=== PATIENT | female | born 1955 | race Caucasian/White ===

== ENCOUNTER 2016-07-05 10:53 | Emergency (ER) | payer BC ==
[~2016-07-05] VITALS: Ht 167.6 cm; Wt 68.2 kg
[2016-07-05 10:55] VITALS: TEMP 97
[2016-07-05] MEDS ORDERED: NORCO 325 MG-51 TAB PO (12:35)
[2016-07-05 12:46] VITALS: BP 112/62; PULSE 89
== END 2016-07-05 12:55 | disposition home or self-care (01) ==
LOC: COL.ER 10:53
DX: S02.2XXA Fracture of nasal bones, initial encounter for closed fracture (principal); S01.21XA Laceration without foreign body of nose, initial encounter; W01.0XXA Fall on same level from slipping, tripping and stumbling without subsequent striking against object, initial encounter

== ENCOUNTER → 2021-06-17 | Outpatient (CLI) | payer BC, MEDICARE ==
[~2021-06-17] MED LIST: NORCO 325 MG-51 TAB PO
== END ==
LOC: MC.RAD 13:27
DX: Z12.31 Encounter for screening mammogram for malignant neoplasm of breast (principal); M85.80 Other specified disorders of bone density and structure, unspecified site

== ENCOUNTER → 2024-02-13 | Outpatient (CLI) | payer MEDICARE, BC | LOC: MC.RAD 13:15 | DX: Z12.31 Encounter for screening mammogram for malignant neoplasm of breast (principal) ==